=== PATIENT | female | born 2000 ===

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

== ENCOUNTER 2022-04-13 06:30 | Inpatient (IN) | payer OTHER ==
[2022-04-13] MEDS ORDERED: OXYTOCIN 20 UNITS in 0.9% NS 20 UNIT/1,000 ML INFUS.BAG IV ONE ×2 (07:24→11:09)
[2022-04-13] MEDS ORDERED: LIDOCAINE HCL 1% PRESERVATIVE FREE - 30ML VIAL ONE (07:37)
[2022-04-13] MEDS ORDERED: ACETAMINOPHEN 325 MG TABLET (FP) PO PRN (07:56)
[2022-04-13] MEDS ORDERED: BENZOCAINE 20% 57 GM BOTTLE TP PRN (07:56)
[2022-04-13] MEDS ORDERED: METHYLERGONOVINE MALEATE 0.2 MG/1 ML AMP IM PRN (07:56)
[2022-04-13] MEDS ORDERED: oxyCODONE HCL 5 MG TABLET PO PRN (07:56)
[2022-04-13] MEDS ORDERED: BISACODYL 10 MG SUPP.RECT RC PRN (07:56)
[2022-04-13] MEDS ORDERED: BENZOCAINE 28 GM HEMORRHOIDAL OINTMENT TP PRN (07:56)
[2022-04-13] MEDS ORDERED: WITCH HAZEL 50% (TUCKS) 40 PAD/JAR PAD TP PRN (07:56)
[2022-04-13] MEDS ORDERED: OXYTOCIN 20 UNITS in 0.9% NS 20 UNIT/1,000 ML INFUS.BAG IV SCH (08:00)
[2022-04-13 08:33] LABS: BASO % 0.2 % (0-2.0); EOS % 0.1 % (0-4.5); HEMATOCRIT 40.7 % (32.4-45.2); HEMOGLOBIN 13.5 GM/dL (10.7-15.3); LYMPH % 13.2 % (8-40); MCH 28.6 pg (25.7-33.7); MCHC 33.1 g/dl (32.0-36.0); MEAN CELL VOLUME 86.4 fl (80-96); MEAN PLT VOLUME 10.1 fl (7.5-11.1); NEUT % 83.5 % (42.8-82.8); PLATELET COUNT 139 10^3/uL (134-434); RBC 4.71 M/mm3 (3.60-5.2); RDW 14.1 % (11.6-15.6); WHITE BLOOD COUNT 12.2 K/mm3 (4.0-10.0)
[2022-04-13 08:44] LABS: INR 0.9 (0.83-1.09); PROTHROMBIN TIME (PATIENT) 10.3 SEC (9.7-13.0)
[2022-04-13 08:46] LABS: ACTIVATED PTT 26.2 SECONDS (25.2-36.5)
[2022-04-13 08:56] LABS: CALCIUM 8.6 mg/dL (8.5-10.1)
[2022-04-13 08:57] LABS: BLOOD UREA NITROGEN 8.5 mg/dL (7-18)
[2022-04-13 09:01] LABS: CREATININE 0.7 mg/dL (0.55-1.3)
[2022-04-13 10:13] VITALS: BMI 28.9
[2022-04-13] MEDS ORDERED: IBUPROFEN 600 MG TABLET (FP) PO ONE (10:24)
[2022-04-13] MEDS: PRENATAL VITAMINS W/ FOLIC ACID TABLET (FP) PO SCH (11:00)
[2022-04-13] MEDS ORDERED: PRENATAL VITAMINS W/ FOLIC ACID TABLET (FP) PO ONE (11:09)
[2022-04-13] MEDS: IBUPROFEN 600 MG TABLET (FP) PO PRN ×2 (11:25→19:26)
[2022-04-14] MEDS: IBUPROFEN 600 MG TABLET (FP) PO PRN ×3 (05:55→19:20)
[2022-04-14 08:11] LABS: BASO % 0.3 % (0-2.0); EOS % 0.7 % (0-4.5); HEMOGLOBIN 11.4 GM/dL (10.7-15.3); LYMPH % 29.5 % (8-40); MCH 28.8 pg (25.7-33.7); MCHC 33.5 g/dl (32.0-36.0); MEAN CELL VOLUME 86.1 fl (80-96); MEAN PLT VOLUME 9.8 fl (7.5-11.1); MONO % 5.7 % (3.8-10.2); NEUT % 63.8 % (42.8-82.8); PLATELET COUNT 133 10^3/uL (134-434); RBC 3.95 M/mm3 (3.60-5.2); RDW 14.4 % (11.6-15.6); WHITE BLOOD COUNT 11.6 K/mm3 (4.0-10.0)
[2022-04-14] MEDS ORDERED: FLU VACC QS2022-23(6MOS UP)/PF 60 MCG/0.5 ML SYRINGE IM ONE (10:00)
[2022-04-14] MEDS: PRENATAL VITAMINS W/ FOLIC ACID TABLET (FP) PO SCH (10:30)
[2022-04-14] MEDS ORDERED: SENNOSIDES/DOCUSATE COMBO (SENNA PLUS) TABLET (UD) PO PRN (22:00)
[2022-04-15] MEDS: IBUPROFEN 600 MG TABLET (FP) PO PRN (07:48)
[2022-04-15 09:00] VITALS: BP 114/63; PULSE 88; RESP 17; TEMP 98.7
[2022-04-15] MEDS: PRENATAL VITAMINS W/ FOLIC ACID TABLET (FP) PO SCH (10:03)
== END 2022-04-15 12:17 | disposition home or self-care (01) | DRG 560 ==
LOC: JDEL 06:30 → JLDR 07:15 → J3W 11:15
PROVIDERS: ADMIT Obstetrics & Gynecology; ATTEND Obstetrics & Gynecology
PROC: 10E0XZZ Delivery of Products of Conception, External Approach (ICD-10-PCS; principal; 2022-04-13)
DX: O48.0 Post-term pregnancy (principal); Z3A.40 40 weeks gestation of pregnancy; Z37.0 Single live birth; O70.0 First degree perineal laceration during delivery
CPT/HCPCS: 36415; 59025; 59409; 80048; 85025; 85610; 85730; 86780; 86850; 86900; 86901; C9803-CS; G0008; Q2036; U0003; U0005